=== PATIENT | male | born 1980 | race Hispanic/Latino ===

== ENCOUNTER 2021-06-07 17:46 | Emergency (ER) | payer SELFPAY ==
[2021-06-07] MEDS ORDERED: Boostrix 0.5 ML (Tdap) VIAL ONE (17:52)
[2021-06-07] MEDS ORDERED: HYDROcodone/Acetaminophen 5/325 mg Tablet ONE (17:57)
[2021-06-07] MEDS ORDERED: Ondansetron ODT 4 MG TAB ONE (17:57)
[2021-06-07] MEDS ORDERED: Lidocaine 1% w/Epinephrine 1:100K 20 ML VIAL ONE (18:44)
[2021-06-07] MEDS ORDERED: Sterile Water 10 ML ONE (21:39)
[2021-06-07] MEDS ORDERED: CEFAZOLIN 1 GM VIAL ONE (21:39)
[2021-06-07 22:05] LABS: SARS-CoV-2 NAA Rapid Test Not Detected (NotDetected)
== END 2021-06-07 22:14 | disposition short-term general hospital (02) ==
LOC: NAV ERS 17:46
DX: S61.412A Laceration without foreign body of left hand, initial encounter (principal); Z20.822 Contact with and (suspected) exposure to COVID-19; W29.8XXA Contact with other powered hand tools and household machinery, initial encounter
CPT/HCPCS: 12002; 90471; 90715; 96372; J0690; Q0162; U0002